=== PATIENT | female | born 1995 | race Caucasian/White ===

== ENCOUNTER 2018-03-24 21:00 | Emergency (ER) | payer BC ==
[~2018-03-24] VITALS: Ht 167.6 cm; Wt 59.0 kg
[2018-03-24 21:04] VITALS: BP 110/69
[2018-03-24] MEDS ORDERED: ACETAMINOPHEN 325 MG TABLET PO ONE (21:30)
[2018-03-24 21:35] LABS: APPEARANCE,URINE Clear (CLEAR); BILIRUBIN,URINE Negative (NEGATIVE); BLOOD, URINE Negative Ery/uL (NEGATIVE); COLOR,URINE Yellow (YELLOW); KETONES,URINE Negative (NEGATIVE); LEUKOCYTE ESTERASE ,URINE Trace (NEGATIVE); NITRITE, URINE Negative (NEGATIVE); PROTEIN,URINE Negative (NEGATIVE); UGLUCOSE Negative (NEGATIVE); UROBILINOGEN,URINE 0.2 EU/dL (0.2)
[2018-03-24 21:43] LABS: BACTERIA,URINE Many /HPF (None Seen); SQUAMOUS EPITHELIAL CELL,UR Many /HPF (None Seen)
[2018-03-24 21:44] LABS: RBC,URINE 0-2 /HPF (0-2)
[2018-03-24] MEDS ORDERED: ACETAMINOPHEN ES 500 MG TABLET ONE (21:45)
[2018-03-24 22:13] LABS: MONOTEST NEGATIVE (NEGATIVE)
== END 2018-03-24 22:28 | disposition home or self-care (01) ==
LOC: ER 21:03
DX: J02.8 Acute pharyngitis due to other specified organisms (principal); N39.0 Urinary tract infection, site not specified; Z90.89 Acquired absence of other organs; Z88.0 Allergy status to penicillin; Z88.8 Allergy status to other drugs, medicaments and biological substances; Z60.2 Problems related to living alone
CPT/HCPCS: 36415; 81000-TC; 84703-TC; 86308-TC; 86403-TC; 87070-TC; 87086-TC; 87400